=== PATIENT | male | born 1960 | race Caucasian/White ===

== ENCOUNTER 2024-10-29 05:41 | Inpatient (IN) | payer MEDICAID, SELFPAY ==
[2024-10-29] VITALS (12 sets, daily range): BP systolic 104–145; BP diastolic 57–95; PULSE 67–87; RESP 18; TEMP 98.1–98.4; O2SAT 97–99
[~2024-10-29] VITALS: Ht 167.6 cm; Wt 92.0 kg
[2024-10-29] MEDS: NITROGLYCERIN 2% (1 GM=INCH) OINTMENT PACKET TP ONE (05:57)
[2024-10-29] MEDS: SODIUM CHLORIDE 0.9% 1,000 ML IV ONE (05:57)
[2024-10-29] MEDS: ASPIRIN 81 MG CHEWABLE TABLET PO ONE (06:04)
[2024-10-29 06:06] LABS: PLATELET COUNT (AUTO) 228 K/uL (150-450); RED BLOOD CELL COUNT(AUTO) 5.52 MIL/uL (4.50-5.90); RED CELL DISTRIBUTION WIDTH 13.0 % (11.5-14.5); WHITE BLOOD COUNT (AUTO) 11.5 K/uL (4.5-11.0)
[2024-10-29 06:15] LABS: CALCIUM, TOTAL 8.1 mg/dL (8.8-10.5); CREATININE 1.23 mg/dL (0.60-1.30); GLOMERULAR FILTR. RATE CALC 59 mL/min (>60); GLUCOSE,RANDOM 149 mg/dL (70-110); SODIUM SERUM 142 mmol/L (136-145); UREA NITROGEN, BLOOD 13 mg/dL (7-18)
[2024-10-29 06:28] LABS: TROPONIN I-HIGH SENSITIVITY 198 ng/L (<76)
[2024-10-29 06:58] LABS: ALCOHOL, BLOOD (SERUM) < 3 mg/dL (0-10)
[2024-10-29 07:00] LABS: ASPARTATE AMINOTRANSFERASE 25 U/L (15-37); TOTAL PROTEIN, SERUM 7.3 g/dL (6.4-8.2)
[2024-10-29] MEDS ORDERED: HEPARIN SODIUM,PORCINE 5,000 UNITS/ML VIAL IVP PRN ×3 (07:00→20:30)
[2024-10-29] MEDS: HEPARIN SODIUM 25000 UNITS/D5W 250 ML IV PRN ×2 (07:35→22:08)
[2024-10-29] MEDS ORDERED: ACETAMINOPHEN 325 MG TABLET PO PRN (07:45)
[2024-10-29] MEDS ORDERED: ONDANSETRON HCL 4 MG/2 ML VIAL IVP PRN (07:45)
[2024-10-29] MEDS: ATORVASTATIN CALCIUM 40 MG TABLET PO ONE ×2 (08:15→08:35)
[2024-10-29] MEDS: DOCUSATE SODIUM 100 MG CAPSULE PO SCH (08:15)
[2024-10-29] MEDS: FAMOTIDINE 20 MG TABLET PO SCH (08:15)
[2024-10-29 08:44] LABS: TROPONIN I-HIGH SENSITIVITY 663 ng/L (<76)
[2024-10-29] MEDS: METOPROLOL TARTRATE 25 MG TABLET PO SCH (09:43)
[2024-10-29] MEDS: MORPHINE SULFATE 2 MG/ML SYRINGE IVP PRN (10:43)
[2024-10-29 12:36] LABS: APPEARANCE,URINE CLEAR (CLEAR); GLUCOSE, URINE (UA) NEGATIVE (NEGATIVE); LEUKOCYTE ESTERASE ,URINE NEGATIVE (NEGATIVE); NITRATE,URINE NEGATIVE (NEGATIVE); OCCULT BLOOD,URINE MODERATE (NEGATIVE); SPECIFIC GRAVITIY, URINE 1.017 (1.003-1.030)
[2024-10-29 12:41] LABS: AMPHET/METH SCREEN,URINE POSITIVE (NEGATIVE); BARBITURATE SCREEN, URINE NEGATIVE (NEGATIVE); CANNABINOID SCREEN,URINE NEGATIVE (NEGATIVE); COCAINE SCREEN,URINE NEGATIVE (NEGATIVE); METHADONE SCREEN, URINE NEGATIVE (NEGATIVE)
[2024-10-29 12:56] LABS: PH,URINE DRUG SCREEN 7.0 (5.0-8.0)
[2024-10-29 13:02] LABS: ALCOHOL, URINE DRUG SCREEN NEGATIVE (NEGATIVE)
[2024-10-29] MEDS: NITROGLYCERIN 0.4 MG SUBLINGUAL TABLET #25 SL ONE (13:23)
[2024-10-29] MEDS ORDERED: VERAPAMIL HCL 2.5 MG/ML 2 ML VIAL ONE (14:26)
[2024-10-29] MEDS ORDERED: HEPARIN SODIUM 1000 UNITS/NS 1,000 ML ONE (14:26)
[2024-10-29] MEDS ORDERED: NITROGLYCERIN 50 MG/D5% WATER 250 ML ONE (14:26)
[2024-10-29] MEDS ORDERED: SODIUM BICARBONATE 50 MEQ/50 ML VIAL ONE (14:26)
[2024-10-29] MEDS ORDERED: LIDOCAINE/PF 1% 30 ML VIAL ONE (14:26)
[2024-10-29] MEDS ORDERED: IOHEXOL 300 MG/ML 100 ML VIAL ONE ×2 (14:26→15:56)
[2024-10-29] MEDS ORDERED: MIDAZOLAM HCL 2 MG/2 ML VIAL ONE (15:13)
[2024-10-29] MEDS ORDERED: FentaNYL CITRATE PF 100 MCG/2 ML VIAL ONE (15:13)
[2024-10-29] MEDS: LIDOCAINE 1% 30 ML/SOD BICARB 8.4% 4 ML SQ ONE (15:48)
[2024-10-29] MEDS: IOHEXOL 300 MG/ML 100 ML VIAL IARTER ONE ×3 (15:48→16:34)
[2024-10-29] MEDS: FentaNYL CITRATE PF 100 MCG/2 ML VIAL IVP ONE ×2 (15:53→16:06)
[2024-10-29] MEDS: HEPARIN SODIUM 1000 UNITS/NS 1,000 ML IARTER ONE (15:53)
[2024-10-29] MEDS: MIDAZOLAM HCL 2 MG/2 ML VIAL IVP ONE ×2 (15:53→16:06)
[2024-10-29] MEDS: VERAPAMIL HCL 2.5 MG/ML 2 ML VIAL IARTER ONE (15:54)
[2024-10-29] MEDS: HEPARIN SODIUM,PORCINE 1,000 UNITS/ML 10 ML VIAL IARTER ONE (15:54)
[2024-10-29] MEDS: NITROGLYCERIN/D5W 50 MG/250 ML IV BOTTLE IARTER ONE (15:55)
[2024-10-29] MEDS ORDERED: NITROGLYCERIN 0.4 MG SUBLINGUAL TABLET #25 SL PRN (16:30)
[2024-10-29 18:36] LABS: TROPONIN I-HIGH SENSITIVITY 20456 ng/L (<76)
[2024-10-29 21:50] LABS: PLATELET COUNT (AUTO) 222 K/uL (150-450); RED BLOOD CELL COUNT(AUTO) 5.29 MIL/uL (4.50-5.90); RED CELL DISTRIBUTION WIDTH 13.1 % (11.5-14.5); WHITE BLOOD COUNT (AUTO) 13.2 K/uL (4.5-11.0)
[2024-10-30] VITALS (19 sets, daily range): BP systolic 94–134; BP diastolic 64–94; PULSE 58–75; RESP 17–18; TEMP 97.9–98.6; O2SAT 95–99
[2024-10-30 04:29] LABS: PLATELET COUNT (AUTO) 209 K/uL (150-450); RED BLOOD CELL COUNT(AUTO) 5.23 MIL/uL (4.50-5.90); RED CELL DISTRIBUTION WIDTH 13.2 % (11.5-14.5); WHITE BLOOD COUNT (AUTO) 13.5 K/uL (4.5-11.0)
[2024-10-30 04:44] LABS: CHOL/HDL RATIO 3.3 (4.2-7.3); LDL CHOL (CALC.) 71.0 mg/dL (0-130)
[2024-10-30 04:45] LABS: CALCIUM, TOTAL 8.1 mg/dL (8.8-10.5); CREATININE 1.08 mg/dL (0.60-1.30); GLOMERULAR FILTR. RATE CALC > 60 mL/min (>60); GLUCOSE,RANDOM 108 mg/dL (70-110); SODIUM SERUM 137 mmol/L (136-145); UREA NITROGEN, BLOOD 11 mg/dL (7-18)
[2024-10-30] MEDS: HEPARIN SODIUM,PORCINE 5,000 UNITS/ML VIAL IVP PRN (05:06)
[2024-10-30 05:50] LABS: TROPONIN I-HIGH SENSITIVITY Greater than 25000 ng/L (<76)
[2024-10-30] MEDS ORDERED: SODIUM BICARBONATE 50 MEQ/50 ML VIAL ONE (07:09)
[2024-10-30] MEDS ORDERED: IOHEXOL 300 MG/ML 100 ML VIAL ONE (07:09)
[2024-10-30] MEDS ORDERED: LIDOCAINE/PF 1% 30 ML VIAL ONE (07:09)
[2024-10-30] MEDS ORDERED: VERAPAMIL HCL 2.5 MG/ML 2 ML VIAL ONE (07:09)
[2024-10-30] MEDS ORDERED: NITROGLYCERIN 50 MG/D5% WATER 250 ML ONE (07:10)
[2024-10-30] MEDS ORDERED: HEPARIN SODIUM 1000 UNITS/NS 1,000 ML ONE (07:10)
[2024-10-30] MEDS ORDERED: FentaNYL CITRATE PF 100 MCG/2 ML VIAL ONE (07:56)
[2024-10-30] MEDS ORDERED: MIDAZOLAM HCL 2 MG/2 ML VIAL ONE (07:56)
[2024-10-30] MEDS: IOHEXOL 300 MG/ML 100 ML VIAL ICOR ONE (08:31)
[2024-10-30] MEDS: FentaNYL CITRATE PF 100 MCG/2 ML VIAL IVP ONE ×2 (08:32→08:39)
[2024-10-30] MEDS: HEPARIN SODIUM 1000 UNITS/NS 1,000 ML IARTER ONE (08:32)
[2024-10-30] MEDS: HEPARIN SODIUM,PORCINE 1,000 UNITS/ML 10 ML VIAL IARTER ONE (08:32)
[2024-10-30] MEDS ORDERED: IOHEXOL 300 MG/ML 50 ML VIAL ONE ×2 (08:33→08:47)
[2024-10-30] MEDS: LIDOCAINE 1% 30 ML/SOD BICARB 8.4% 4 ML SQ ONE (08:33)
[2024-10-30] MEDS: VERAPAMIL HCL 2.5 MG/ML 2 ML VIAL IARTER ONE (08:34)
[2024-10-30] MEDS: MIDAZOLAM HCL 2 MG/2 ML VIAL IVP ONE ×2 (08:35→09:06)
[2024-10-30] MEDS: NITROGLYCERIN/D5W 50 MG/250 ML IV BOTTLE IARTER ONE (08:35)
[2024-10-30] MEDS: SODIUM CHLORIDE 0.9% 500 ML IV ONE (08:36)
[2024-10-30] MEDS: IOHEXOL 300 MG/ML 50 ML VIAL ICOR ONE ×2 (08:39→09:05)
[2024-10-30] MEDS: NITROGLYCERIN/D5W 50 MG/250 ML IV BOTTLE ICOR ONE (08:50)
[2024-10-30] MEDS ORDERED: ASPIRIN 81 MG CHEWABLE TABLET ONE (08:56)
[2024-10-30] MEDS: ASPIRIN 81 MG DR TABLET PO SCH (09:00)
[2024-10-30] MEDS: HEPARIN SODIUM,PORCINE 1,000 UNITS/ML 10 ML VIAL IVP ONE (09:06)
[2024-10-30] MEDS: ASPIRIN 81 MG CHEWABLE TABLET PO ONE (09:21)
[2024-10-30] MEDS: ATORVASTATIN CALCIUM 40 MG TABLET PO SCH (09:53)
[2024-10-30] MEDS: HEPARIN SODIUM,PORCINE 5,000 UNITS/ML VIAL SQ SCH (16:25)
[2024-10-31] VITALS (7 sets, daily range): BP systolic 104–131; BP diastolic 64–80; PULSE 70–86; RESP 17–19; TEMP 98–99.1; O2SAT 97–98
[2024-10-31 07:26] LABS: TROPONIN I-HIGH SENSITIVITY Greater than 25000 ng/L (<76)
[2024-10-31 08:22] LABS: CALCIUM, TOTAL 8.3 mg/dL (8.8-10.5); CREATININE 0.99 mg/dL (0.60-1.30); GLOMERULAR FILTR. RATE CALC > 60 mL/min (>60); GLUCOSE,RANDOM 81 mg/dL (70-110); PLATELET COUNT (AUTO) 199 K/uL (150-450); RED BLOOD CELL COUNT(AUTO) 5.50 MIL/uL (4.50-5.90); RED CELL DISTRIBUTION WIDTH 13.4 % (11.5-14.5); SODIUM SERUM 138 mmol/L (136-145); UREA NITROGEN, BLOOD 13 mg/dL (7-18); WHITE BLOOD COUNT (AUTO) 12.8 K/uL (4.5-11.0)
[2024-11-01 04:47] VITALS: BP 150/89; PULSE 89; RESP 18; TEMP 99; O2SAT 98
[2024-11-01 06:16] LABS: PLATELET COUNT (AUTO) 198 K/uL (150-450); RED BLOOD CELL COUNT(AUTO) 5.37 MIL/uL (4.50-5.90); RED CELL DISTRIBUTION WIDTH 13.0 % (11.5-14.5); WHITE BLOOD COUNT (AUTO) 12.5 K/uL (4.5-11.0)
[2024-11-01 06:35] LABS: CALCIUM, TOTAL 8.5 mg/dL (8.8-10.5); CREATININE 1.20 mg/dL (0.60-1.30); GLOMERULAR FILTR. RATE CALC > 60 mL/min (>60); GLUCOSE,RANDOM 101 mg/dL (70-110); SODIUM SERUM 140 mmol/L (136-145); UREA NITROGEN, BLOOD 18 mg/dL (7-18)
[2024-11-01 07:04] LABS: TROPONIN I-HIGH SENSITIVITY 23387 ng/L (<76)
[2024-11-01 07:49] VITALS: BP 121/78; PULSE 89; RESP 17; TEMP 99; O2SAT 100
[2024-11-01] MEDS ORDERED: ATOR40TA71 PO (08:30)
[2024-11-01] MEDS ORDERED: METO25 PO (08:30)
[2024-11-01] MEDS ORDERED: PRAS10TA21 PO (08:30)
[2024-11-01] MEDS ORDERED: ASPI-1444 PO (08:30)
== END 2024-11-01 08:00 | disposition left against medical advice (07) | DRG 174 ==
LOC: EMS 07:33 → EDH 07:37 → 5S 12:45
PROVIDERS: ADMIT Internal Medicine; ATTEND Internal Medicine
PROC: 4A023N7 Measurement of Cardiac Sampling and Pressure, Left Heart, Percutaneous Approach (ICD-10-PCS; principal; 2024-10-29)
PROC: B2111ZZ Fluoroscopy of Multiple Coronary Arteries using Low Osmolar Contrast (ICD-10-PCS; 2024-10-30)
PROC: 027135Z Dilation of Coronary Artery, Two Arteries with Two Drug-eluting Intraluminal Devices, Percutaneous Approach (ICD-10-PCS; 2024-10-30)
DX: I21.4 Non-ST elevation (NSTEMI) myocardial infarction (principal); E66.9 Obesity, unspecified; F15.10 Other stimulant abuse, uncomplicated; I25.10 Atherosclerotic heart disease of native coronary artery without angina pectoris; Z53.21 Procedure and treatment not carried out due to patient leaving prior to being seen by health care provider; Z68.32 Body mass index [BMI] 32.0-32.9, adult; Z72.0 Tobacco use
CPT/HCPCS: 37236; 71045; 80048; 80061; 80076; 80307; 81001; 83036; 83880; 84484; 85025; 85610; 85730; 92920; 92921; 92928; 93005; 93306; 96361; 96365; 96375; 99285; G0480; J1644; J2250; J2270; J3010; J3490; J7030; Q9967; 36415-L1; 36415-TC; Z7610